=== PATIENT | male | born 1935 | race Caucasian/White ===

== ENCOUNTER 2020-07-30 19:12 | Emergency (ER) | payer OTHER ==
[~2020-07-30] VITALS: Ht 177.8 cm; Wt 102.1 kg
[~2020-07-30 19:12] MED LIST: ACYC800 PO; Aspirin EC81 MG PO; CARV3.125 PO; DOCU100 PO; FISH1000 PO; IBUP800 PO; LEVSOD75 PO; METF500C PO; MULTI VITAMIN1 EACH PO; ROSU10TA PO; TADA10TA PO
[2020-07-30] MEDS ORDERED: METF500C PO (19:37)
== END 2020-07-30 20:53 | disposition home or self-care (01) ==
LOC: ER 19:12
DX: M17.12 Unilateral primary osteoarthritis, left knee (principal)
CPT/HCPCS: 73562-LT; 99283-25

== ENCOUNTER → 2020-12-18 | Outpatient (CLI) | payer OTHER ==
[2020-12-18 12:49] LABS: BASOPHILS ABSOLUTE AUTO 0.04 K/mm3 (0.00-0.23); BASOPHILS PERCENT AUTO 1 % (0-2); EOSINOPHILS ABSOLUTE AUTO 0.13 K/mm3 (0.00-0.68); EOSINOPHILS PERCENT AUTO 2 % (0-6); Hematocrit 38.8 % (37.0-53.0); Hemoglobin 13.2 g/dL (13.5-17.5); IMMATURE GRAN ABSOLUTE AUTO 0.03 K/mm3 (0.00-0.10); IMMATURE GRAN PERCENT AUTO 0 % (0-1); LYMPHOCYTES ABSOLUTE AUTO 0.93 K/mm3 (0.84-5.20); LYMPHOCYTES PERCENT AUTO 11 % (21-46); MONOCYTES ABSOLUTE AUTO 0.87 K/mm3 (0.16-1.47); MONOCYTES PERCENT AUTO 11 % (4-13); Mean Corpuscular HGB 30.1 pg (26.0-34.0); Mean Corpuscular Volume 89 fL (80-100); NEUTROPHILS ABSOLUTE AUTO 6.14 K/mm3 (1.96-9.15); NEUTROPHILS PERCENT AUTO 75 % (41-73); Platelet Count 204 K/mm3 (150-400); RDW Coefficient Variation 13.5 % (11.7-14.2); RDW Standard Deviation 43.9 fL (35.1-46.3); Red Blood Cell Count 4.38 M/mm3 (4.30-5.90); White Blood Cell Count 8.14 K/mm3 (4.00-11.30)
[2020-12-18 12:55] LABS: Calcium, Blood 9.4 mg/dL (8.5-10.1); Creatinine, Blood 1.23 mg/dL (0.60-1.20); Potassium, Blood 4.6 mmol/L (3.5-5.5); Uric Acid, Blood 6.5 mg/dL (3.5-7.2)
== END | disposition home or self-care (01) ==
LOC: LAB SHORT 12:44 → LAB 12:44
PROVIDERS: Physician Assistant
DX: M25.572 Pain in left ankle and joints of left foot (principal)
CPT/HCPCS: 80048; 84550; 85025